=== PATIENT | male | born 1985 | race African-American/Black ===

== ENCOUNTER 2016-09-15 13:18 | Emergency (ER) | payer OTHER | END 2016-09-15 14:38 | disposition home or self-care (01) | LOC: CFTX 13:18 → CED 13:18 → CFTX 14:09 | DX: M54.2 Cervicalgia (principal); G89.29 Other chronic pain; E11.9 Type 2 diabetes mellitus without complications; Z79.4 Long term (current) use of insulin; I10 Essential (primary) hypertension; E78.5 Hyperlipidemia, unspecified | CPT/HCPCS: 96372; 99283; J1885; J2360 ==